=== PATIENT | female | born 1945 | race Caucasian/White ===

== ENCOUNTER → 2024-05-20 08:58 | Outpatient (REF) | payer MEDICARE, OTHER, SELFPAY ==
[2024-05-20 10:15] LABS: % Basophils 0.6 % (0-2); % Eosinophils 3.5 % (0-6); % Immature Granulocytes 0.2 % (0-0.5); % Lymphocytes 30.1 % (20.5-51.1); % Monocytes 9.8 % (1.7-9.3); % Neutrophils 55.8 % (42.2-75.2); Absolute Eosinophils 0.2 10^3/uL (0-0.7); Absolute Lymphocytes 1.5 10^3/uL (1.2-3.4); Absolute Monocytes 0.5 10^3/uL (0.1-0.6); Absolute Neutrophils 2.7 10^3/uL (1.4-6.5); Hemoglobin 13.8 g/dL (12.0-16.0); Mean Corp Hgb Conc. 32.9 g/dL (33.0-37.0); Mean Corpuscular Hgb 29.2 pg (27.0-31.0); Mean Corpuscular Volume 88.8 fL (81.0-99.0); Mean Platelet Volume 8.5 fL (7.4-10.4); Nucleated Red Blood Cells % 0 %; Platelet Count 224 10^3/uL (130-400); Red Blood Cell Count 4.73 10^6/uL (4.20-5.40); Red Cell Dist. Width 13.8 % (11.5-14.5); White Blood Cell Count 4.9 10^3/uL (4.8-10.8)
[2024-05-20 10:45] LABS: Glycohemoglobin (HgbA1c) 5.9 % (4.0-5.6)
[2024-05-20 10:51] LABS: ALT (SGPT) 20 U/L (0-35); AST (SGOT) 23 U/L (14-36); Albumin 4.5 g/dl (3.5-5.0); Alkaline Phosphatase 65 U/L (38-126); Blood Urea Nitrogen 14 mg/dl (7-17); Calcium 9.6 mg/dl (8.4-10.2); Carbon Dioxide 28 mmol/L (22-30); Chloride 104 mmol/L (98-107); Glucose 101 mg/dl (70-99); HDL Cholesterol 71 mg/dl; LDL Cholesterol, Calculated 154 mg/dl; Potassium 4.5 mmol/L (3.5-5.1); Sodium 144 mmol/L (135-145); Total Bilirubin 0.5 mg/dl (0.2-1.3); Total Cholesterol 236 mg/dl (50-199); Total Protein 7.4 g/dl (6.3-8.2); Triglyceride 59 mg/dl (10-149); Very Low Density Lipoprotein 11 mg/dl (0-30); eGFR > 60.00
[2024-05-20 11:22] LABS: TSH 4.75 uIU/ml (0.47-4.68)
== END ==
LOC: REG 08:58
PROVIDERS: ATTENDING PHYSICIAN Family Medicine
DX: R41.3 Other amnesia (principal); Z01.89 Encounter for other specified special examinations; Z13.220 Encounter for screening for lipoid disorders; R73.01 Impaired fasting glucose
CPT/HCPCS: 36415; 80053; 80061; 83036; 84439; 84443; 85025

== ENCOUNTER → 2024-06-18 09:56 | Outpatient (REF) | payer MEDICARE, OTHER, SELFPAY | LOC: WDC 09:56 | PROVIDERS: ATTENDING PHYSICIAN Nurse Practitioner Family; FAMILY PHYSICIAN Family Medicine | DX: M79.622 Pain in left upper arm (principal); Z85.3 Personal history of malignant neoplasm of breast | CPT/HCPCS: 76642; 77062; 77066 ==

== ENCOUNTER → 2024-09-02 11:12 | Outpatient (REF) | payer MEDICARE, OTHER, SELFPAY | LOC: PAVMRI 11:12 | PROVIDERS: ATTENDING PHYSICIAN Family Medicine | DX: R41.3 Other amnesia (principal); Z86.79 Personal history of other diseases of the circulatory system | CPT/HCPCS: 70551 ==

== ENCOUNTER → 2025-04-05 12:20 | Outpatient (REF) | payer MEDICARE, OTHER, SELFPAY ==
[2025-04-05 14:38] LABS: Iron 80 ug/dl (37-170)
[2025-04-05 14:42] LABS: C-Reactive Protein < 5.00 mg/L (0.0-10.00)
[2025-04-05 15:18] LABS: Ferritin 91.5 ng/ml (11.1-264.0)
[2025-04-05 15:50] LABS: Folate 13.9 ng/ml (2.76-20); Vitamin B12 385 pg/ml (239-931)
[2025-04-07 11:24] LABS: Rheumatoid Agglutinin Less Than 10 IU (<10 IU)
[2025-04-07 14:34] LABS: Lyme Antibody Screen, EIA Equivocal (Negative)
[2025-04-08 08:02] LABS: Arsenic, Blood <10.0 ug/L (<=12.0); Lead - Venous <2.0 ug/dL (<=3.4); Mercury, Blood 5.8 ug/L (<=10.0)
== END ==
LOC: REG 12:20
PROVIDERS: ATTENDING PHYSICIAN Psychiatry & Neurology Neurology; FAMILY PHYSICIAN Family Medicine
DX: R41.3 Other amnesia (principal); Z79.899 Other long term (current) drug therapy; M85.80 Other specified disorders of bone density and structure, unspecified site; Z79.60 Long term (current) use of unspecified immunomodulators and immunosuppressants
CPT/HCPCS: 36415; 82175; 82607; 82728; 82746; 82784; 83521; 83540; 83655; 83825; 84155; 84165; 84425; 84466; 85652; 86140; 86334; 86430; 86617; 86618

== ENCOUNTER → 2025-07-08 08:40 | Outpatient (REF) | payer MEDICARE, OTHER, SELFPAY ==
[2025-07-08 10:34] LABS: Glycohemoglobin (HgbA1c) 6.0 % (4.0-5.9)
== END ==
LOC: REG 08:40
PROVIDERS: ATTENDING PHYSICIAN Family Medicine
DX: R73.01 Impaired fasting glucose (principal)
CPT/HCPCS: 36415; 83036